=== PATIENT | female | born 1965 | race Two or more races ===

== ENCOUNTER 2024-05-09 17:34 | Emergency (ER) | payer OTHER ==
[~2024-05-09] VITALS: Ht 162.6 cm; Wt 68.0 kg
[2024-05-09] MEDS ORDERED: SYNTHROID100 MCG (17:45)
[2024-05-09 17:46] VITALS: BP 146/90; O2SAT 99
[2024-05-09] MEDS ORDERED: LOSARTAN-HCTZ1 EAC2 (17:46)
[2024-05-09] MEDS ORDERED: CARVEDILOL3.125 MG (17:46)
[2024-05-09] MEDS ORDERED: FAMOTIDINE/PF 20 MG/2 ML VIAL ONE (18:12)
[2024-05-09] MEDS ORDERED: KETOROLAC TROMETHAMINE 60 MG VIAL IM ONE ×2 (18:12→18:15)
[2024-05-09] MEDS ORDERED: DICYCLOMINE HCL 10 MG CAPSULE PO ONE (18:12)
[2024-05-09] MEDS ORDERED: DICYCLOMINE HCL 20 MG TABLET PO ONE (18:15)
[2024-05-09] MEDS ORDERED: FAMOtidine 10 MG/ML (4ML VIAL) IV ONE (18:15)
[2024-05-09] MEDS ORDERED: 0.9 % SODIUM CHLORIDE 1,000 ML IV ONE (18:15)
[2024-05-09] MEDS ORDERED: hydrOXYzine PAMOATE 25 MG CAPSULE PO ONE ×2 (18:45→18:50)
[2024-05-09 18:47] LABS: HEMATOCRIT 39.6 % (36.0-45.00); HEMOGLOBIN 13.2 g/dL (12.0-15.00); MEAN CELL VOLUME 88.1 fL (80.00-100.00); MEAN CORPUSCULAR HEMOGLOBIN 29.3 pg (27.00-32.0); MEAN CORPUSCULAR HGB CONC 33.3 g/dl (32.0-36.0); PLATELET COUNT 208 K/uL (150-450); RED BLOOD COUNT 4.49 M/uL (4.00-6.00)
[2024-05-09 19:09] LABS: INR 0.99; PARTIAL THROMBOPLASTIN TIME 26.1 SECONDS (22.0-34.0); PROTHROMBIN TIME 10.8 SECONDS (9.0-11.5)
[2024-05-09 19:13] LABS: ALBUMIN 3.7 gm/dL (3.4-5.0); BILIRUBIN TOTAL 0.88 mg/dL (0.3-1.2); CALCIUM 9.3 mg/dL (8.5-10.1); CREATININE SERUM 1.02 mg/dL (0.55-1.02); GFR 55.28; GLOBULINA 2.9 G/DL (2.4-3.5); POTASSIUM 3.81 mEq/L (3.5-5.1); TOTAL PROTEIN 6.6 gm/dL (6.4-8.2)
[2024-05-09 19:30] LABS: URINE APPEARANCE Clear; URINE BILIRRUBIN Negative (NEGATIVE); URINE BLOOD Negative; URINE COLOR Yellow; URINE GLUCOSE Negative (NEGATIVE); URINE KETONE Negative (NEGATIVE); URINE LEUKOCYTE Negative; URINE NITRATE Negative; URINE PROTEIN Negative (NEGATIVE); URINE UROBILINOGEN 0.2 E.U./dl
[2024-05-09 19:34] LABS: URINE EPITHELIAL CELLS 2.2 uL (0.0-38.8); URINE RBC 2.2 uL (0.0-20.8)
[2024-05-09 19:41] LABS: URINE BACTERIA 2.4 uL (0.0-1933); URINE WBC 0.7 uL (0.0-23.2)
[2024-05-09] MEDS ORDERED: PEPCID AC20 MG PO (20:41)
[2024-05-09] MEDS ORDERED: DICY20TA PO (20:41)
== END 2024-05-09 20:46 | disposition home or self-care (01) ==
LOC: ER 17:36
PROVIDERS: General Practice
DX: R10.32 Left lower quadrant pain (principal); R10.9 Unspecified abdominal pain; I10 Essential (primary) hypertension; E03.8 Other specified hypothyroidism; Z88.0 Allergy status to penicillin
CPT/HCPCS: 36415; 74177; 96365; 96366; 96372; 99284; J1885; J3490; J7030; Q9965